=== PATIENT | female | born 1985 | race African-American/Black ===

== ENCOUNTER 2016-09-21 10:24 | Emergency (ER) | payer OTHER ==
--- NOTE | ~2016-09-21 | CT2 ---
[facility] A Service of [facility] & [facility] RADIOLOGY TEXT RESULTS PATIENT: AGUSTINA BETH LOCATION: CFTX : 81 UNIT #: [id number] AGE: [address]: Juana Lezama APRN SEX: F ORDER DR: [id number] [facility] [address] [place], [place] [address] [id number] E MR#: [id number] Acc #: [id number] NAME: AGUSTINA BETH : 1985 SEX: F STUDY DATE/TIME: 09/21/2016 13:34 UNIT: CFTX ROOM: STUDY DESCRIPTION: CT Abd and Pelv W Cont Attending Physician: Juana Lezama A.P.R.N. Ordering Physician: Woodrow Altamirano M.D. Primary Care Physician: Chelsea Riley M.D. MEDICAL IMAGING REPORT This report is preliminary unless electronic signature is present EXAM CT abdomen and pelvis with contrast, 09/21/2016 13:34 hours HISTORY Right-sided abdominal pain since 09/20/2016. History of ovarian cysts. COMPARISON 02/23/2015 CT scan TECHNIQUE Dynamic helical CT images were obtained from the lung bases through the pubic symphysis. Sagittal and coronal reconstructions were performed. Contrast was Isovue-370, 100 mL IV. Total exam DLP 758 mGy-cm. This CT exam was performed with one or more of the following radiation dose reduction techniques: automatic exposure control, adjustment of mA and/or kV according to patient size, and iterative reconstruction. FINDINGS Images through the lung bases are clear. There are no effusions. The distal esophagus is normal. Images through the abdomen demonstrate a normal appearance to the liver with stable mild fatty change along the falciform ligament. The spleen, pancreas, pancreatic duct, gallbladder and bile ducts are normal. The adrenal glands are normal. The abdominal aorta is normal in caliber. The stomach is mildly well opacified and appears normal. The small bowel is mostly well opacified with contrast. No small bowel wall thickening or distension is seen. The terminal ileum is normal. The cecum is normal. There is no evidence of appendicitis. There is opacification of the right colon only. Most of the colon is air-filled. There is no colonic wall STS. [facility] A Service of [facility] & [facility] RADIOLOGY TEXT RESULTS PATIENT: AGUSTINA BETH LOCATION: CFTX : 81 UNIT #: [id number] AGE: [address]: Juana Lezama APRN SEX: F ORDER DR: ana maría. CT pelvis demonstrates an anteverted uterus without myometrial mass. There is no suspicious adnexal mass or cyst. There is no pelvic free fluid. IMPRESSION 1. Essentially negative CT scan of the abdomen and pelvis. There is mild focal fatty change in the liver adjacent to the falciform ligament unchanged from 02/23/2015. 2. No renal or ureteral calculi. 3. No evidence of appendicitis. No distension of the small bowel or colon. 4. Negative CT pelvis. Dictated by... Naheed Strickland M.D. THIS IS AN ELECTRONICALLY VERIFIED REPORT Naheed Strickland M.D. at 09/21/2016 2:27 PM Marisela TD: 09/21/2016 14:19 JOB #: [id number] MEDICAL IMAGING REPORT Page 1 of 1 COPY
[~2016-09-21 10:24] MED LIST: BENZONATATE PO; DICLOFENAC PO; FLEXERIL PO; FLONASE16 GM; PHENERGAN25 M1 PO; VICODIN 5/1 TAB 5/50 PO
[2016-09-21 11:40] LABS: URINE SOURCE CLEAN CATCH
[2016-09-21 11:50] LABS: URINE APPEARANCE CLEAR; URINE BILIRUBIN NEG (NEG); URINE BLOOD 1+ (NEG); URINE COLOR DK YELLOW; URINE GLUCOSE NEG (NEG); URINE KETONE TRACE (NEG); URINE LEUKOCYTE ESTERASE NEG (NEG); URINE NITRATE NEG (NEG); URINE PROTEIN TRACE (NEG); URINE SPECIFIC GRAVITY 1.025 (1.003-1.035)
[2016-09-21 11:53] LABS: URINE BACTERIA AUWI NEG (NEGATIVE); URINE SQUAMOUS EPITHELIAL CELL OCC /[HPF]
[2016-09-21 12:00] LABS: CULTURE INDICATED? NO; URINE CRYSTALS CALCIUM OXALATE /[HPF]
[2016-09-21 12:38] LABS: BASOPHIL% 0.6 % (0-2.5); EOSINOPHIL% 0.7 % (0.0-7.0); HEMATOCRIT 40.2 % (35.0-45.0); HEMOGLOBIN 13.4 gm/dL (12.0-16.0); LYMPHOCYTE# 1.6 X10e3 (1.0-3.5); LYMPHOCYTE% 34.4 % (17.0-45.0); MEAN CELL VOLUME 94.2 FL (83-96); MEAN CORPUSCULAR HEMOGLOBIN 31.3 PG (28-34); MEAN CORPUSCULAR HGB CONC 33.2 g/dL (30-36); MEAN PLATELET VOLUME 9.3 FL (6.5-11.5); MONOCYTE# 0.5 X10e3 (0-1.0); MONOCYTE% 10.6 % (3.0-12.0); NEUTROPHIL# 2.5 X10e3 (1.5-7.1); NEUTROPHIL% 53.7 % (40-75); PLATELET COUNT 216 X10e3 (140-420); RED BLOOD COUNT 4.27 X10e (3.90-5.30); RED CELL DISTRIBUTION WIDTH 13.7 % (11.0-15.5); WHITE BLOOD COUNT 4.7 X10e3 (4.0-10.5)
[2016-09-21 12:40] LABS: DIFF IND NO
[2016-09-21 13:05] LABS: ALBUMIN SERUM 3.7 g/dL (3.5-5.0); BILIRUBIN,TOTAL 1.7 mg/dL (0.2-2.0); BUN/CREATININE RATIO 17.14; CREATININE SERUM 0.7 mg/dL (0.6-1.4); GLOM FILT RATE Estimated 131.9 mL/min (>60); POTASSIUM 3.6 mmol/L (3.5-5.1); PROTEIN TOTAL SERUM 6.8 g/dL (6.0-8.3)
[2016-09-22 23:38] LABS: CHLAMYDIA TRACH Not Detected (Not Detected); N GONOR Not Detected (Not Detected)
== END 2016-09-21 15:26 | disposition home or self-care (01) ==
LOC: CFTX 10:24 → CED 10:24 → CFTX 11:14
PROVIDERS: Nurse Practitioner
DX: R10.31 Right lower quadrant pain (principal); R11.2 Nausea with vomiting, unspecified; F17.200 Nicotine dependence, unspecified, uncomplicated; F41.9 Anxiety disorder, unspecified; Z79.899 Other long term (current) drug therapy
CPT/HCPCS: 36415; 74177; 80053; 81003; 84703; 85025; 87491; 87591; 87808; 87905; 96374; 99284; J2405; Q9967

== ENCOUNTER 2017-01-24 15:45 | Emergency (ER) | payer OTHER ==
[~2017-01-24] VITALS: Ht 152.4 cm; Wt 70.8 kg
== END 2017-01-24 16:40 | disposition home or self-care (01) ==
LOC: CED 15:45 → CFTX 15:45
DX: N61.0 Mastitis without abscess (principal); N60.01 Solitary cyst of right breast; F41.9 Anxiety disorder, unspecified; I10 Essential (primary) hypertension; J45.909 Unspecified asthma, uncomplicated
CPT/HCPCS: 96372; 99283; J1885